=== PATIENT | female | born 1955 | race Caucasian/White ===

== ENCOUNTER → 2019-01-23 | Outpatient (CLI) | payer BC, OTHER ==
[~2019-01-23] VITALS: Ht 162.6 cm; Wt 59.0 kg
[~2019-01-23] MED LIST: ALENDRONATE SOD35 MG PO; CALCIUM 600 +1 EAC8 PO; CELEBREX 200 M200 M1 PO; HYDROCODONE-AP1 EAC6 PO; LYRICA 50 MG50 MG PO; LYRICA 75 MG CA75 MG PO; NEURONTIN 300M300 M2 PO; NORCO 5-325 TA1 EACH PO; NORTRIPTYLINE H10 M1 PO; NORTRIPTYLINE H10 M2 PO; TRAMADOL 50 MG50 MG PO
--- NOTE | ~2019-01-23 | HPC ---
[facility] [address] [place] [address] PAIN MANAGEMENT CONSULTATION Name: ALFREDA DELACRUZ Ivette Room #: REG LUIS Jennifer.#: [id number] Admission: 01/23/19 ������������������ Attend Phys: Jorge Maradiaga MD Discharge: ������������������ Date of : 57 Report #: [id number] THIS REPORT FOR: //name// CC: Logan Maradiaga DATE OF SERVICE: 01/23/2019 Followup visit for chronic regional pain syndrome, type 2. This is a followup visit for the patient who is on medication management with low doses of Lyrica and hydrocodone to help manage neuropathic pain in her right leg. Her history is well documented throughout the record. 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 She continues to manage effectively living with chronic pain at the level of about 6/10. She continues to do physical therapy on a regular basis and remain active. We discussed her medication use, which has been helpful. She has had some difficulty at night; however, with insomnia part of this is related to pain and other part is due to rumination in the middle of the night. We talked about methods to go back to sleep and we talked a little bit about sleep hygiene. I would like to not another medication to her regimen since she is fairly sensitive, but I do think if she wakes up in the middle of the night and can go back to sleep with small amount of hydrocodone that she uses she could go ahead and take another half of the tablet. PHYSICAL EXAMINATION: She is pleasant female. Blood pressure is 121/82, heart rate 68. She is 5 feet 4 inches, 130 pounds, BMI of 22.3. She moves from sitting to standing position and walks with an antalgic gait. She has pain throughout her right hip. Tenderness is located along the outflow track of the sciatic nerve and in her right hip. There is some hypersensitivity in the lower extremity as well. IMPRESSION: 1. Chronic regional pain syndrome type 2 involving the right lower extremity. Sciatic nerve injury. 2. Management of high risk medication under terms of written opioid agreement. I have renewed her medications, which she finds helpful and she is grateful for the benefits that she receives. She has minimal side effects other than some mild daytime drowsiness, which she is able to manage by careful use. She [address] [address] PAIN MANAGEMENT CONSULTATION Name: ALFREDA DELACRUZ Ivette Room #: REG LUIS FERNANDOBilly Baca#: [id number] Admission: 01/23/19 ������������������ Attend Phys: Jorge Maradiaga MD Discharge: ������������������ Date of : 57 Report #: [id number] safeguards her medication and understands the importance. No side effects need to be addressed at this time other than to help her with some sleep issues. Followup visit planned in the pain clinic in 3 months. ��������������������������������������������� ���������������������������������������� By: ��������������������������������������������� 1724 [id number] Jorge Maradiaga MD /nt
[2019-01-23 10:38] VITALS: BP 121/82
--- NOTE | 2019-01-23 11:12 | NUR ---
Pain Clinic Assessment: 1. History of Osteoarthritis: Not Applicable History of Rheumatoid Arthritis: Not Applicable 2. Height: 5 ft. 4 in. 162.6 cm. Weight: 130.0 lb. oz. 58.968 kg. Patient's BMI: 22.3 3. Vital Signs: BP: 121/82 Pulse: 68 Resp: 16 Temp: 02 Sat: 100 ECG Mon: 4. Pain Intensity: 6 5. Fall Risk: Dizziness: N Needs help standing or walking: N Fallen in the last 3 months: N Fall risk comments: 6. Patient on Blood Thinner: None 7. History of Hypertension: N 8. Opioid Therapy greater than 6 weeks: Y Opiate Contract Signed: 01/23/19 9. Risk Assessment Tool Provided: 0-LOW RISK 10. Functional Assessment Tool: 11. Recreational Drug Use: Never Drug Type: Tobacco Use: Never Smoker Tobacco Type: Amount or Packs/day: How Many Years: Alcohol Use: Yes Frequency: Daily Quant: 1 DRINK/DAY
== END ==
LOC: PAIN 06:51
DX: G57.71 Causalgia of right lower limb (principal); Z79.891 Long term (current) use of opiate analgesic; Z79.899 Other long term (current) drug therapy

== ENCOUNTER → 2019-04-20 | Outpatient (CLI) | payer BC, OTHER ==
[~2019-04-20] VITALS: Ht 162.6 cm; Wt 63.2 kg
[~2019-04-20] MED LIST changes: +LYRICA25 MG PO; +NORCO 5-325 TA1 EAC1 PO
[2019-04-20 10:43] VITALS: BP 128/70
--- NOTE | 2019-04-20 10:54 | NUR ---
Pain Clinic Assessment: 1. History of Osteoarthritis: Not Applicable History of Rheumatoid Arthritis: Not Applicable 2. Height: 5 ft. 4 in. 162.6 cm. Weight: 139.4 lb. oz. 63.231 kg. Patient's BMI: 23.9 3. Vital Signs: BP: 128/70 Pulse: 71 Resp: 14 Temp: 02 Sat: 100 ECG Mon: 4. Pain Intensity: 6 5. Fall Risk: Dizziness: N Needs help standing or walking: Y Fallen in the last 3 months: N Fall risk comments: 6. Patient on Blood Thinner: None 7. History of Hypertension: N 8. Opioid Therapy greater than 6 weeks: Y Opiate Contract Signed: 01/23/19 9. Risk Assessment Tool Provided: 0-LOW RISK 10. Functional Assessment Tool: 11. Recreational Drug Use: Never Drug Type: Tobacco Use: Never Smoker Tobacco Type: Amount or Packs/day: How Many Years: Alcohol Use: Yes Frequency: Special Occasions Quant: 1
--- NOTE | 2019-04-24 07:31 | HPC ---
[facility] [place] [address] PAIN MANAGEMENT CONSULTATION Name: NUBIAALFREDA Ivette Room #: REG CL Jennifer.#: [id number] Admission: 04/20/19 ������������������ Attend Phys: Edna Fuentes Discharge: ������������������ Date of : 57 Report #: [id number] THIS REPORT FOR: //name// CC: Edna Fuentes Flavio Wise DATE OF SERVICE: 04/20/2019 CHIEF COMPLAINT: Chronic regional pain syndrome type 2. HISTORY OF PRESENT ILLNESS: The patient returns to the pain clinic today for a refill of her current medications that she uses to help manage her neuropathic pain in her right leg. 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 She uses her hydrocodone and her Lyrica to treat this pain. The patient tells me that her pain score today is 6/10. It is a burning, shooting, aching, feels like water rushing down her right leg. It is worse with activity and movement. Essentially anything she does, aggravates her leg. She tells me she does not sleep very well at night. She does use heat and her medications. She tells me that she recently had to increase her Lyrica slightly to help with this flare that she is experiencing in her right leg. She denies any problems with constipation. ALLERGIES: CODEINE AND ERYTHROMYCIN. MEDICATIONS: Hydrocodone 5/325 b.i.d., Lyrica 25 mg tablets 2 in the morning and 3 at night, calcium. PQRS: 1. Denies a history of osteoarthritis or rheumatoid arthritis. 2. Height is 5 feet 4 inches, weight is 139, BMI is 23. 3. VITAL SIGNS: Blood pressure 128/70, pulse is 71, respirations 14, oxygen sat is 100. 4. Pain score 6/10. 5. Denies dizziness. Does use a cane for walking. She has not fallen in the last 3 months. 6. The patient is not on any blood thinners. She does not take medicine for hypertension. 7. Opiate therapy is greater than 6 weeks; therefore, an opiate signed contract is on the chart. Her risk assessment tool is low. Her functional assessment is 44/70. 8. Recreational drug use, she denies. She is not a smoker and occasionally drinks alcohol. We did check the prescription monitoring system. The patient recently filled [facility] [address] [place] [address] PAIN MANAGEMENT CONSULTATION Name: ALFREDA DELACRUZ Room #: REG CL Keven#: [id number] Admission: 04/20/19 ������������������ Attend Phys: Edna Fuentes Discharge: ������������������ Date of : 57 Report #: [id number] her hydrocodone and has not needed that prescription today, but is here to discuss her Lyrica. PHYSICAL EXAMINATION: GENERAL: This is a well-developed, well-nourished 63-year-old female who appears her stated age, placing her pain score today at 6/10. She is alert and oriented and her affect is appropriate. HEENT: Normocephalic, atraumatic. Extraocular eye muscles are intact. Mucous membranes are moist. Hearing is adequate. NECK: Without adenopathy or JVD. MUSCULOSKELETAL: She is able to move from sitting to standing and she does walk with an antalgic gait. She has pain throughout her right hip and into her right leg. Tenderness along the sciatic nerve and into her right hip. There is some hypersensitivity in her right lower extremity as well. The patient states it feels like water rushing down her leg. IMPRESSION: 1. Chronic regional pain syndrome type 2 involving the right lower extremity from a sciatic nerve injury. 2. Management of high risk medications under terms of written opioid agreement. We reviewed the fact that opiate medications are being used to provide analgesia adequate to support activities of daily living, not attempting to achieve a specific pain score on the 0-10 Visual Analog Scale. The current opiate medications are providing sufficient analgesia to allow the patient to participate in activities of daily living. The patient is not exhibiting any aberrant behavior suggestive of drug diversion. The patient is not having any adverse reactions to medications. The patient is not suffering from daytime somnolence or mental acuity changes. The patient is managing opiate-induced constipation with appropriate jpls-jst-hrevguc agents and dietary considerations. The patient was counseled on concern for caution with operating a motor vehicle while using opiate medications. A physical exam was performed and the patient's functional status was evaluated. All patients with back pain were advised against the bed rest greater than 4 days and were advised to return to normal activities. Pain score assessment was noted and the treatment plan was reviewed with the patient. All current medications, both prescribed and OTC were reviewed and reconciled on the electronic medical record. Tobacco screening was accomplished and smoking cessation was advised when indicated. BMI was noted and diet/exercise modification was recommended for all patients following outside normal parameters. I reviewed with the patient today their responsibilities to safeguard prescription medications, reviewed their responsibility to utilize medications only as prescribed by the physician. They are to seek and receive pain [address] [address] PAIN MANAGEMENT CONSULTATION Name: ALFREDA DELACRUZ Room #: REG LUIS Baca#: [id number] Admission: 04/20/19 ������������������ Attend Phys: Edna Fuentes Discharge: ������������������ Date of : 57 Report #: [id number] medications only from 1 physician group ( [facility]). They are to use 1 pharmacy and keep the clinic informed if they change pharmacies. Their responsibilities include making followup visits in a timely fashion and to avoid abrupt discontinuation of medication usage. Their responsibilities further include bringing their medications (bottles from the pharmacy with residual pills) to the visit for possible confirmation of pill counts and the patient understands it is their responsibility to submit to random drug screens to ensure both that the medications prescribed are present, and that no other controlled substances are present. All prescriptions provided today were generated electronically. PLAN: 1. We discussed treatment options with the patient today and renewed her hydrocodone 5/325, #60 for today for an 8-week release. The patient does not need to take this to fill today. She does take her medicines usually later in the day, not in the morning. 2. We discussed her Lyrica use. The patient has had to increase due to increased burning in her right extremity. She has been taking some 75 mg tablets of an older prescription. Currently, she is taking one to two 25 mg in the morning and 75 mg at night. Upon discussion with Dr. Jorge Maradiaga who is here present for this discussion, we have elected to increase her Lyrica. Scripts given today for Lyrica 25 mg 1-2 in the a.m., quantity 60 and Lyrica 75 mg 1 at bedtime, quantity 30 with refills on both of those medicines. The patient will decrease these meds back to her previous dose if she is having decreased pain. 3. The patient will return in followup in 3 months' time period. Instructed to call when she fills her last prescription for an appointment and she verbalizes understanding. Dr. Jorge Maradiaga did collaborate care. ��������������������������������������������� <ELECTRONICALLY SIGNED> ���������������������������������������� By: Edna Fuentes ��������������������������������������������� 04/24/19 0731 [id number] Edna Fuentes /nt
== END ==
LOC: PAIN 06:56
DX: G89.4 Chronic pain syndrome (principal); Z88.5 Allergy status to narcotic agent; Z88.1 Allergy status to other antibiotic agents; Z79.899 Other long term (current) drug therapy; Z79.891 Long term (current) use of opiate analgesic

== ENCOUNTER → 2019-08-14 | Outpatient (CLI) | payer BC, OTHER ==
[~2019-08-14] VITALS: Ht 162.6 cm; Wt 60.8 kg
[2019-08-14 12:33] VITALS: BP 132/71
--- NOTE | 2019-08-14 12:43 | NUR ---
Pain Clinic Assessment: 1. History of Osteoarthritis: Not Applicable History of Rheumatoid Arthritis: Not Applicable 2. Height: 5 ft. 4 in. 162.6 cm. Weight: 134.0 lb. oz. 60.782 kg. Patient's BMI: 23.0 3. Vital Signs: BP: 132/71 Pulse: 78 Resp: 16 Temp: 02 Sat: 99 ECG Mon: 4. Pain Intensity: 4-TODAY, 3-5 AVG 5. Fall Risk: Dizziness: N Needs help standing or walking: Y Fallen in the last 3 months: N Fall risk comments: USES CANE FOR LONG DISTANCES 6. Patient on Blood Thinner: None 7. History of Hypertension: N 8. Opioid Therapy greater than 6 weeks: Y Opiate Contract Signed: 01/23/19 9. Risk Assessment Tool Provided: 0-LOW RISK 10. Functional Assessment Tool: 11. Recreational Drug Use: Never Drug Type: Tobacco Use: Never Smoker Tobacco Type: Amount or Packs/day: How Many Years: Alcohol Use: Yes Frequency: Quant:
--- NOTE | 2019-08-15 09:26 | HPC ---
[facility] [address] [place] [address] PAIN MANAGEMENT CONSULTATION Name: MAN PAK Room #: REG [facility] Keven#: [id number] Admission: 08/14/19 Attend Phys: Edna Fuentes Discharge: Date of : 57 Report #: [id number] THIS REPORT FOR: //name// CC: Edna Maradiaga MD DATE OF SERVICE: 08/14/2019 CHIEF COMPLAINT: Chronic pain syndrome type 2. 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 She reports that the hydrocodone is very beneficial as well as the Lyrica in controlling her pain, which she rates at a 4 today. Her pain is a burning, shooting, aching pain, feeling like static in her calf. The patient reports that recently she was a visitor in the hospital while her was hospitalized for several days, at first she thought she reinjured her leg because she was sitting for the long periods of time, but now has realized that she has had ongoing pain behind her right calf down to the bottom of her foot and feels like "static." This is a new sensation for her due to the fact that she had no feeling prior to that. She said it is bothersome at times, not painful, and she feels the Lyrica is beneficial in helping with some of this new different pain. ALLERGIES: CODEINE AND ERYTHROMYCIN ALLERGIES. CURRENT LIST OF MEDICATIONS: Lyrica 25-50 mg in the morning, Lyrica 75 mg at night, hydrocodone 5/325 two tablets a day and calcium. PQRS: 1. She denies history of osteoarthritis or rheumatoid arthritis. 2. Height is 5 feet 4 inches, weight is 134, BMI is 23. 3. Blood pressure 132/71, pulse is 78, respirations 16, oxygen sat is 99. 4. Pain score is 4/10. 5. Denies dizziness. Does need help walking, uses a cane for long distances and has not fallen in the last 3 months. 6. The patient is not on any blood thinners or hypertension medicines. 7. Opioid therapy is greater than 6 weeks; therefore, an opioid signed contract is on the chart. Her risk assessment tool is low. Functional assessment is 44/70. 8. Recreational drug use, she denies. She is [place] [address] PAIN MANAGEMENT CONSULTATION Name: MAN PAK Ivette Room #: REG [facility] [id number] Admission: 08/14/19 Attend Phys: Edna Fuentes Discharge: Date of : 57 Report #: [id number] drinks alcohol. According to the prescription monitoring system, the patient is filling appropriately for her medications. We will check a drug screen on her in the next visit. PHYSICAL EXAMINATION: GENERAL: This is a well-developed, well-nourished, well-hydrated 64-year-old female who appears her stated age, placing her current pain score at 4 today. HEENT: Normocephalic, atraumatic. Extraocular eye muscles are intact. Mucous membranes are moist. NECK: Without adenopathy or JVD. MUSCULOSKELETAL: She moves from sitting to standing without any difficulty. Does use a cane. She has an antalgic gait. She has pain that radiates from her right hip into her right leg, complaining of static feeling in her right calf today that radiates into the bottom of her right foot. These are new sensations for her. There is some hypersensitivity in her right lower extremity as well. IMPRESSION: 1. Chronic regional pain syndrome type 2 involving right lower extremity from a sciatic nerve injury. 2. Management of high-risk medications under terms of written opioid agreement. We reviewed the fact that opiate medications are being used to provide analgesia adequate to support activities of daily living, not attempting to achieve a specific pain score on the 0-10 Visual Analog Scale. The current opiate medications are providing sufficient analgesia to allow the patient to participate in activities of daily living. The patient is not exhibiting any aberrant behavior suggestive of drug diversion. The patient is not having any adverse reactions to medications. The patient is not suffering from daytime somnolence or mental acuity changes. The patient is managing opiate-induced constipation with appropriate euax-eak-wzncuxs agents and dietary considerations. The patient was counseled on concern for caution with operating a motor vehicle while using opiate medications. A physical exam was performed and the patient's functional status was evaluated. All patients with back pain were advised against the bed rest greater than 4 days and were advised to return to normal activities. Pain score assessment was noted and the treatment plan was reviewed with the patient. All current medications, both prescribed and OTC were reviewed and reconciled on the electronic medical record. Tobacco screening was accomplished and smoking cessation was advised when indicated. BMI was noted and diet/exercise modification was recommended for all patients following outside normal parameters. I reviewed with the patient today their responsibilities to [address] [address] PAIN MANAGEMENT CONSULTATION Name: MAN PAK Room #: REG CLBilly Baca#: [id number] Admission: 08/14/19 Attend Phys: Edna Fuentes Discharge: Date of : 57 Report #: [id number] prescription medications, reviewed their responsibility to utilize medications only as prescribed by the physician. They are to seek and receive pain medications only from 1 physician group ( [facility]). They are to use 1 pharmacy and keep the clinic informed if they change pharmacies. Their responsibilities include making followup visits in a timely fashion and to avoid abrupt discontinuation of medication usage. Their responsibilities further include bringing their medications (bottles from the pharmacy with residual pills) to the visit for possible confirmation of pill counts and the patient understands it is their responsibility to submit to random drug screens to ensure both that the medications prescribed are present, and that no other controlled substances are present. All prescriptions provided today were generated electronically. PLAN: 1. We discussed treatment options with the patient today. The patient has reported a new feeling in her right leg. I believe this may be due to some nerve regeneration in the right lower extremity. Dr. Jorge Maradiaga was here present for part of the visit as well and agreed that that may be what she is feeling. The patient encouraged to continue her Lyrica 1-2 tablets in the morning and 75 mg at night. The patient also encouraged that if she needs to take an additional one in the midday that she maybe take 25 mg at that time. She verbalizes understanding. 2. Scripts given today for hydrocodone 5/325, #60. This places her at the 10 morphine mEq well below the CDC guidelines; 3 months of this medicine was given. 3. Lyrica 25 mg, #60, with 2 additional refills, and Lyrica 75, #30, with 2 additional refills. 4. The patient will return in 3 months' time unless she needs to come in sooner if symptoms arise. The patient is seen in collaboration with Dr. Jorge Maradiaga today who as mentioned did see her today. <ELECTRONICALLY SIGNED> By: Edna Fuentes 08/15/19 0926 [id number] Edna Fuentes /nt
== END ==
LOC: PAIN 07-31 06:52
DX: G89.4 Chronic pain syndrome (principal); M79.604 Pain in right leg; Z88.8 Allergy status to other drugs, medicaments and biological substances; Z79.899 Other long term (current) drug therapy; Z79.891 Long term (current) use of opiate analgesic

== ENCOUNTER → 2019-11-06 | Outpatient (CLI) | payer BC, OTHER ==
[~2019-11-06] VITALS: Ht 162.6 cm; Wt 63.1 kg
[2019-11-06 10:11] VITALS: BP 114/82
--- NOTE | 2019-11-06 10:23 | NUR ---
Pain Clinic Assessment: 1. History of Osteoarthritis: Not Applicable History of Rheumatoid Arthritis: Not Applicable 2. Height: 5 ft. 4 in. 162.6 cm. Weight: 139.2 lb. oz. 63.141 kg. Patient's BMI: 23.9 3. Vital Signs: BP: 114/82 Pulse: 74 Resp: 14 Temp: 02 Sat: 100 ECG Mon: 4. Pain Intensity: 5-R LEG; 7-8 L LEG 5. Fall Risk: Dizziness: N Needs help standing or walking: Y Fallen in the last 3 months: N Fall risk comments: USES CANE FOR LONG DISTANCES 6. Patient on Blood Thinner: None 7. History of Hypertension: N 8. Opioid Therapy greater than 6 weeks: Y Opiate Contract Signed: 01/23/19 9. Risk Assessment Tool Provided: 0-LOW RISK 10. Functional Assessment Tool: 11. Recreational Drug Use: Never Drug Type: Tobacco Use: Never Smoker Tobacco Type: Amount or Packs/day: How Many Years: Alcohol Use: Yes Frequency: Quant:
--- NOTE | 2019-11-06 11:36 | NUR ---
Pain Clinic Assessment: 1. History of Osteoarthritis: Left Lower Extremity Left Upper Extremity Right Lower Extremity Right Upper Extremity History of Rheumatoid Arthritis: Not Applicable 2. Height: 5 ft. 7 in. 170.2 cm. Weight: 230.0 lb. oz. 104.328 kg. Patient's BMI: 36.0 3. Vital Signs: BP: 114/82 Pulse: 74 Resp: 14 Temp: 02 Sat: 100 ECG Mon: 4. Pain Intensity: 10 5. Fall Risk: Dizziness: N Needs help standing or walking: Y Fallen in the last 3 months: N Fall risk comments: USES CANE FOR LONG DISTANCES 6. Patient on Blood Thinner: None 7. History of Hypertension: Y 8. Opioid Therapy greater than 6 weeks: N Opiate Contract Signed: 01/23/19 9. Risk Assessment Tool Provided: 1-LOW RISK 10. Functional Assessment Tool: 11. Recreational Drug Use: Never Drug Type: Tobacco Use: Never Smoker Tobacco Type: Amount or Packs/day: How Many Years: Alcohol Use: No Frequency: Quant:
--- NOTE | 2019-11-13 12:21 | HPC ---
[facility] [place] [address] PAIN MANAGEMENT CONSULTATION Name: ALRFEDA PAK Room #: REG LUIS Rodriguez.#: [id number] Admission: 11/06/19 Attend Phys: Jorge Maradiaga MD Discharge: Date of : 57 Report #: [id number] THIS REPORT FOR: //name// CC: ADAM Wise Physician staff Jorge Maradiaga DATE OF SERVICE: 11/06/2019 Followup visit for chronic intractable pain, complex regional pain syndrome type 2. The patient is here today in followup for her medication renewals. She has chronic pain in her right leg, which is well documented. She has sciatic nerve injury causing complex regional pain syndrome with constant pain. Pain on average daily is 5/10 on the right leg. She has new pain today in her left. It sounds as though it is a very acute sciatica involving the L5-S1 distribution radiating from her thigh down into her calf. It is worse with standing and walking, walking is the worst. It occurred after prolonged [employer] shopping. It has only been 5 days and I have expressed optimism that this may get better with continued activity and exercise. She does continue to do a home exercise program. She is doing the exercises she learned through [facility]. She has pain today in her right sacroiliac joint and localized tenderness. This is in addition to the other two pains mentioned above. PQRS: 1. No history of arthritis, BMI is 23.9. 2. Blood pressure is 114/82, heart rate 74. 3. Pain score is 5 on the right, 7-8/10 on the left. She has not fallen, but uses a cane for walking and would be considered a low fall risk for long distances. 4. She denies use of blood thinning medications or antihypertensives. 5. She is on an opioid agreement, which has been reviewed and reconciled. All medications have been checked on the prescription drug monitoring program and there are no unexpected entries. She has completed an opioid risk tool score of 0. Functional assessment score is 44/70 suggesting moderate to severe impact of her pain on day-to-day activities. 6. She denies use of tobacco and enjoys alcohol socially. PHYSICAL EXAMINATION: Noted. Her gait is antalgic. She has tenderness in the [address] [address] PAIN MANAGEMENT CONSULTATION Name: ALFREDA PAK Room #: REG [facility]#: [id number] Admission: 11/06/19 Attend Phys: Jorge Maradiaga MD Discharge: Date of : 57 Report #: [id number] right hip, which is chronic in nature and radiates in the sciatic distribution. She has some allodynia as well in the lower part of the leg, but this is much improved over the years. No focal weakness is noted. On the left, there is some straight leg raising discomfort consistent with radiculopathy. It follows an L5-S1 distribution into the left calf and thigh. No focal weakness is noted on the left. Deep tendon reflexes are 2+ bilaterally at the knees and absent at the ankles bilaterally. Sensation is normal on the left. IMPRESSION: 1. Complex regional pain syndrome type 2. 2. Acute episodes of sciatica L5-S1 on the left. 3. Management of high-risk medications under terms of written opioid agreement. PLAN: All medications were renewed under terms of our written agreement. She is grateful for the pain relief it provides and she denies any significant side effects. It improves her day-to-day function, allows her to be more active than she could ever be without it. She safeguards her medications and we discussed the importance of the opioid crisis in the [facility] and our responsibility to prevent these medications from relieving her protection. Medications were provided for 3 months, hydrocodone 5/325 one tablet b.i.d., Lyrica 75 mg at bedtime. Followup visit scheduled in January. <ELECTRONICALLY SIGNED> By: Jorge Maradiaga MD 11/13/19 1221 1252 [id number] Jorge Maradiaga MD /nt
== END ==
LOC: PAIN 06:49
DX: G89.4 Chronic pain syndrome (principal); Z79.891 Long term (current) use of opiate analgesic

== ENCOUNTER → 2020-02-05 | Outpatient (CLI) | payer BC, OTHER ==
[~2020-02-05] VITALS: Ht 162.6 cm; Wt 65.7 kg
[2020-02-05 10:57] VITALS: BP 129/76
--- NOTE | 2020-02-05 11:06 | NUR ---
Pain Clinic Assessment: 1. History of Osteoarthritis: History of Rheumatoid Arthritis: Not Applicable 2. Height: 5 ft. 4 in. 162.6 cm. Weight: 144.8 lb. oz. 65.681 kg. Patient's BMI: 24.8 3. Vital Signs: BP: 129/76 Pulse: 77 Resp: 14 Temp: 02 Sat: 100 ECG Mon: 4. Pain Intensity: 6 5. Fall Risk: Dizziness: N Needs help standing or walking: Y Fallen in the last 3 months: N Fall risk comments: USES CANE FOR LONG DISTANCES 6. Patient on Blood Thinner: None 7. History of Hypertension: Y 8. Opioid Therapy greater than 6 weeks: Y Opiate Contract Signed: 01/23/19 9. Risk Assessment Tool Provided: 10. Functional Assessment Tool: 11. Recreational Drug Use: Never Drug Type: Tobacco Use: Never Smoker Tobacco Type: Amount or Packs/day: How Many Years: Alcohol Use: Yes Frequency: Quant:
--- NOTE | 2020-02-05 15:32 | HPC ---
[facility] [place] [address] PAIN MANAGEMENT CONSULTATION Name: ALFREDA PAK Room #: REG [facility].#: [id number] Admission: 02/05/20 Attend Phys: Edna Fuentes Discharge: Date of : 57 Report #: [id number] THIS REPORT FOR: cc: ADAM BOYKIN Physician not on staff Edna Fuentes ~ DATE OF SERVICE: 02/05/2020 CHIEF COMPLAINT: Chronic intractable pain, complex regional pain syndrome type 2. HISTORY OF PRESENT ILLNESS: This is a 64-year-old female who is very anxious here in the clinic today regarding to COVID-19. She is quite worried that she will bring the virus home by being here in the hospital. We have reassured her that we are cleaning all of her surfaces between every patient and we have no cases in our hospital of COVID-19 currently. The patient is here standing will not touch anything in our clinic, awaiting refills of her medicine today. The patient does report her pain score is a 6/10. It is in her right leg that radiates completely down her foot. She has numbness and tingling as well as pain, walking exacerbates her pain, again rating at 6/10. She feels that the medications do help some in alleviating it. The patient denies current problems with constipation as a result of her medication. She feels that the Lyrica has been beneficial in helping with her numbness and tingling in her leg. ALLERGIES: CODEINE AND ERYTHROMYCIN. CURRENT LIST OF MEDICATIONS: Lyrica 25 mg to 50 mg in the morning, Lyrica 75 mg at night, hydrocodone 5/325 p.r.n., and calcium. PQRS: 1. She denies osteo or rheumatoid arthritis. 2. Height is 5 feet 4 inches, weight is 144, BMI is 24. 3. Vital signs 129/76, pulse is 77, respirations 14, oxygen sat is 100. 4. Pain score 6/10. 5. Denies dizziness. Does use a cane for ambulation, has not fallen in the last 3 months. The patient is not on any blood thinners, but does have a history of hypertension, but not taking medicines currently. 6. Opiate therapy is greater than 6 weeks; therefore, an opioid signed contract is on the chart. Risk assessment tool is low. Functional assessment is 44/70. 7. Recreational drug use, she denies. She is not a smoker and occasionally drinks alcohol. PHYSICAL EXAMINATION: GENERAL: This is alert and orientated, quite anxious 64-year-old, rating her [address] [address] PAIN MANAGEMENT CONSULTATION Name: ALFREDA PAK [id number] Admission: 02/05/20 Attend Phys: Edna Fuentes Discharge: Date of : 57 Report #: [id number] pain score at 6/10 today. HEENT: Normocephalic, atraumatic. Extraocular eye muscles are intact. MUSCULOSKELETAL: She has pain that follows the L5-S1 dermatomal distribution of her right leg. She has an antalgic gait, uses a cane at all times. She has allodynia in her lower portion of her leg, numbness and tingling as well, especially in her feet. Lower extremity strength judged to be 5/5 in all major muscle groups. IMPRESSION: 1. Chronic regional pain syndrome type 2 involving her right lower extremity from a sciatic nerve injury. 2. Management of high risk medications under terms of written opioid agreement. We reviewed the fact that opiate medications are being used to provide analgesia adequate to support activities of daily living, not attempting to achieve a specific pain score on the 0-10 Visual Analog Scale. The current opiate medications are providing sufficient analgesia to allow the patient to participate in activities of daily living. The patient is not exhibiting any aberrant behavior suggestive of drug diversion. The patient is not having any adverse reactions to medications. The patient is not suffering from daytime somnolence or mental acuity changes. The patient is managing opiate-induced constipation with appropriate rnde-doz-lbtdayy agents and dietary considerations. The patient was counseled on concern for caution with operating a motor vehicle while using opiate medications. PLAN: 1. We discussed treatment options with the patient today. I explained to the patient that currently with the COVID-19, We are doing our best to keep everything is clean and germ-free as possible, keeping greater than 6 feet distance. There are no patients with COVID-19 in our hospital currently, trying to reassure her it is safe to be here. 2. We will refill her Lyrica 75 mg at bedtime and Lyrica 25 mg #60, 1 to 2 in the morning as well as her hydrocodone 5/325 b.i.d., #60. These will be sent electronically by Dr. Jorge Maradiaga who collaborated care today. The patient will return in 3 months. <ELECTRONICALLY SIGNED> By: Edna Fuentes 02/05/20 1532 1132 1253 Edna Fuentes /sean
== END ==
LOC: PAIN 06:43
DX: G89.4 Chronic pain syndrome (principal); F11.20 Opioid dependence, uncomplicated; Z88.5 Allergy status to narcotic agent; Z88.1 Allergy status to other antibiotic agents; Z88.8 Allergy status to other drugs, medicaments and biological substances; Z79.899 Other long term (current) drug therapy